=== PATIENT | female | born 1955 | race Caucasian/White ===

== ENCOUNTER → 2016-09-12 | Outpatient (CLI) | payer BC ==
[~2016-09-12] MED LIST: ADVIL200 MG PO; ASPIRIN325 MG PO; BIOTIN1000 MICRO PO; DAILY VALUE1 EACH PO; HYDROCHLOROTHIA25 MG PO; KRILL OIL500 MG PO; MAGNESIUM100 MG PO; TRAZODONE HCL50 MG PO; TYLENOL REGULA325 MG PO
== END | disposition home or self-care (01) ==
LOC: PICC 08:58
DX: M27.2 Inflammatory conditions of jaws (principal)
CPT/HCPCS: 76937